=== PATIENT | male | born 1980 | race Caucasian/White ===

== ENCOUNTER → 2018-05-11 | Outpatient (CLI) | payer BC ==
[~2018-05-11] MED LIST: MULT-506 PO
--- NOTE | 2018-05-11 19:35 | DIAGNOSTIC IMAGING REPORT ---
L FOOT MIN 3 VIEWS ROUTINE HISTORY: 38 years-old Male FOOT PAIN acute left-sided foot pain COMPARISON: Left toe radiographs 08/28/2014 TECHNIQUE: 3 views of the left foot FINDINGS: Indeterminate punctate ossifications are noted in the soft tissues lateral to the lateral hallux sesamoid. There is no acute fracture, dislocation, stress injury or significant degenerative changes. Mild marginal spurring about the first MTP joint. IMPRESSION: Mild degenerative changes about the first MTP joint. No acute fracture or dislocation. The above report was generated using voice recognition software. It may contain grammatical, syntax or spelling errors. Electronically signed by: Juan M Oro M.D. 05/11/2018 7:34 PM Dictated Date/Time: 05/11/2018 7:32 PM
== END | disposition home or self-care (01) ==
LOC: C.RAD 19:04
PROVIDERS: ATTEND Family Medicine
DX: M79.672 Pain in left foot (principal)